=== PATIENT | female | born 1980 ===

== ENCOUNTER 2017-07-18 16:38 | Emergency (ER) | payer MEDICAID, OTHER ==
--- NOTE | 2017-07-18 16:41 | ED PDOC ---
Arrival/HPI - General Time Seen by Provider: 07/18/17 16:41 Historian: Patient - History of Present Illness Narrative History of Present Illness (Text): 07/18/17 16:41 36 year old female, no significant pmh, nkda, complaining of rt. upper eyelid swelling and redness started yesterday with no fall or trauma. Aching pain by palpation, no change in vision, no rash, no night sweat, no numbness or tingling , no urinary or bowel incontinence or retention, no back pain, no other medical or psychological complaints. Past Medical History - Provider Review Nursing Documentation Reviewed: Yes Family/Social History - Physician Review Nursing Documentation Reviewed: Yes Family/Social History: Unknown Family HX Allergies/Home Meds Allergies/Adverse Reactions: Allergies No Known Allergies Allergy (Verified 07/18/17 16:40) Review of Systems - Review of Systems Constitutional: absent: Fatigue, Fevers Eyes: Other (rt. eye lid swelling). absent: Vision Changes ENT: absent: Hearing Changes Respiratory: absent: SOB, Cough Cardiovascular: absent: Chest Pain Gastrointestinal: absent: Abdominal Pain, Nausea, Vomiting Musculoskeletal: absent: Arthralgias, Myalgias Skin: absent: Rash, Pruritis Psychiatric: absent: Anxiety, Depression Physical Exam Vital Signs Reviewed: Yes Vital Signs Temp Pulse Resp BP Pulse Ox 07/18/17 16:40 98.6 F 86 16 106/70 100 Temperature: Afebrile Blood Pressure: Normal Pulse: Regular Respiratory Rate: Normal Appearance: Positive for: Well-Appearing, Non-Toxic, Comfortable Pain Distress: Mild Mental Status: Positive for: Alert and Oriented X 3 - Systems Exam Head: Present: Atraumatic, Normocephalic Pupils: Present: PERRL Extroacular Muscles: Present: EOMI, Other (Rt. upper eyelid visible stye noted with no vesicular lesion, no streaking or periorbital swelling, no painful movement of the eye. ) Conjunctiva: Present: Normal Mouth: Present: Moist Mucous Membranes Nose (External): Present: Atraumatic. No: Abrasion, Contusion, Laceration Nose (Internal): Present: Normal Inspection, No Active Bleeding. No: Rhinorrhea , Septal Hematoma, Epistaxis Neck: Present: Normal Range of Motion, Trachea Midline. No: Meningeal Signs, MIDLINE TENDERNESS, Lymphadenopathy Respiratory/Chest: Present: Clear to Auscultation, Good Air Exchange. No: Respiratory Distress, Accessory Muscle Use Cardiovascular: Present: Regular Rate and Rhythm, Normal S1, S2. No: Murmurs Abdomen: Present: Normal Bowel Sounds. No: Tenderness, Distention, Peritoneal Signs Back: Present: Normal Inspection. No: CVA Tenderness, Midline Tenderness Upper Extremity: Present: Normal Inspection. No: Cyanosis, Edema Lower Extremity: Present: Normal Inspection. No: Edema Neurological: Present: GCS=15, CN II-XII Intact, Speech Normal, Motor Func Grossly Intact, Gait Normal, Memory Normal Skin: Present: Warm, Dry, Normal Color. No: Rashes Psychiatric: Present: Alert, Oriented x 3, Normal Insight, Normal Concentration Medical Decision Making ED Course and Treatment: 07/18/17 16:51 -Discharge home with erythromycin, motrin, warm compress, follow up with your own pmd and opthalmologist within 2 days, return to the ER for any new or worsening signs or symptoms. - PA / [employer] / Resident Statement MD/DO has reviewed & agrees with the documentation as recorded. Disposition/Present on Arrival - Present on Arrival Any Indicators Present on Arrival: No History of DVT/PE: No History of Uncontrolled Diabetes: No Urinary Catheter: No History of Decub. Ulcer: No - Disposition Have Diagnosis and Disposition been Completed?: Yes Diagnosis: Stye Disposition: HOME/ ROUTINE Disposition Time: 16:52 Patient Plan: Discharge Patient Problems: Current Active Problems Problem Status Onset Stye Acute Condition: GOOD Additional Instructions: -Discharge home with erythromycin, motrin, warm compress, follow up with your own pmd and opthalmologist within 2 days, return to the ER for any new or worsening signs or symptoms. Prescriptions: Erythromycin 0.5% [Ilytocin] 0.5 in OP Q4 #5 g Ibuprofen [Motrin Tab] 600 mg PO QID PRN #24 tab PRN Reason: Other Referrals: Raad Contreras MD [Staff Provider] - Follow up with primary Forms: WORK NOTE
[2017-07-18 16:43] VITALS: TEMP 98.6
[2017-07-18 17:17] VITALS: BP 110/72; PULSE 65; RESP 17; O2SAT 99
== END 2017-07-18 17:15 | disposition home or self-care (01) ==
LOC: ED 16:38
DX: H00.021 Hordeolum internum right upper eyelid (principal)